=== PATIENT | female | born 1955 ===

== ENCOUNTER 2022-12-26 16:50 | Emergency (ER) | payer BC, MEDICAID ==
[~2022-12-26] VITALS: Ht 154.9 cm; Wt 66.4 kg
[2022-12-26 17:31] VITALS: BP 112/62
[2022-12-26] MEDS ORDERED: IBUP-2028 MT (19:13)
[2022-12-26] MEDS ORDERED: KETOROLAC 60MG/2ML VIAL IM ONE (19:15)
== END 2022-12-26 21:00 | disposition home or self-care (01) ==
LOC: ER 16:50
DX: M79.604 Pain in right leg (principal); I10 Essential (primary) hypertension
CPT/HCPCS: 93971; 96372; 99285; J1885; Z7610